=== PATIENT | female | born 1990 | race Caucasian/White ===

== ENCOUNTER 2021-10-28 00:38 | Inpatient (IN) | payer OTHER, SELFPAY ==
[2021-10-28] VITALS (30 sets, daily range): BP systolic 93–143; BP diastolic 50–96; PULSE 65–123; RESP 16–18; TEMP 36.3–37.2; O2SAT 100; BMI 41.2
--- OUTSIDE RECORDS SUMMARY | 2021-10-28 00:45 | XMS_ITS | Encounter Summary ---
:1990 Author Reason for Visit None recorded. Assessment and Plan 1. Maternal obesity complicating pregna ncy, childbirth and the puerperium, antepartum ? US, obstetric, biophysical profile + non-stress test Discussion Note: None recorded.Patient educational handouts: No information available. Plan of Care Reminders Provider Appointments None recorded. ? ? Lab None recorded. ? ? Referral None recorded. ? ? Procedures None recorded. ? ? Surgeries None recorded. ? ? Imaging US, Obstetric, Biophysical Profile + [place] Non-stress Test Medications Name Start Date ? ? ? Medications Administered None recorded. Vitals None recorded. Results Lab Results None recorded. Allergies Code Code System Name Reaction Severity Onset NKDA ? ? ? Problems Name Status Onset Date Source ? Active 05/19/2021 ? Procedures Date Name Performed by ? 09/23/2021 US, Obstetric, Follow-up [place] [address] [place] [address] (Work [address]) 09/23/2021 Non-stress Test [place] [address] [place] [address] ([address]) 09/30/2021 US, Obstetric, Biophysical Profile + [facility] Non-stress Test [address] [place], [place] [address]
--- OUTSIDE RECORDS SUMMARY | 2021-10-28 00:45 | XMS_ITS ---
:1990 Author Care Team Providers Name Role Phone Lisa Heller Primary Care Provider Unavailable Allergies Code Code System Name Reaction Severity Status Onset NKDA ? Medications Name Status Start Date Stop Date ? ? nitrofurantoin monohydrate/macrocrystals 100 mg capsule Complete d ? 06/17/2021 TAKE 1 CAPSULE BY MOUTH EVERY 12 HOURS WITH FOOD FOR 7 DAYS Active ? Not available Problems Name Status Onset Date Source ? Active 05/19/2021 ? Procedures Date Name Performed by ? 05/19/2021 US, Obstetric, Limited [place] [address] [place] [phone] ([address]) 06/17/2021 US, Obstetric, 2Nd or 3Rd Trimester [facility] [address] [place] [address] ([address]) 09/23/2021 US, Obstetric, Follow-up [place] [address] [place] [address] ([address]) 09/23/2021 Non-stress Test [place] [address] [place] [address] (Work [address]) 09/30/2021 US, Obstetric, Biophysical Profile + [facility] Non-stress Test [facility] [place] [address] ([address]) 09/30/2021 Non-stress Test [place]
--- OUTSIDE RECORDS SUMMARY | 2021-10-28 00:45 | XMS_ITS | Encounter Summary ---
[...] ? Imaging US, Obstetric, Biophysical Profile + [place] Non-stress Test Medications Name Start Date ? ? ? Medications Administered None recorded. Vitals None recorded. Results Lab Results None recorded. Allergies Code Code System Name Reaction Severity Onset NKDA ? ? ? Problems Name Status Onset Date Source ? Active 05/19/2021 ? Procedures Date Name Performed by ? 09/23/2021 US, Obstetric, Follow-up [place] [address] [place] [address] ([address]) 09/23/2021 Non-stress Test [place] [address] [place] [address] ([address]) 09/30/2021 US, Obstetric, [facility]ophysical [facility] [address] [place], [place] [address]
--- OUTSIDE RECORDS SUMMARY | 2021-10-28 00:45 | XMS_ITS | Encounter Summary ---
:1990 Author Reason for Visit OB visit Assessment and Plan Assessment Note Patient is ___weeks . Discussed plan. 1. Routine care Discussion Note: None recorded.Patient educational handouts: No information available. Plan of Care Reminders Provider Appointments None recorded. ? ? Lab None recorded. ? ? Referral None recorded. ? ? Procedures None recorded. ? ? Surgeries None recorded. ? ? Imaging None recorded. ? ? Medications Name Start Date ? ? ? Medications Administered None recorded. Vitals Height Weight BMI Blood Pressure 5 ft 3.75 in 240 lbs 41.5 kg/m2 133/87 mm[Hg] Results Lab Results None recorded. Allergies Code Code System Name Reaction Severity Onset NKDA ? ? ? Problems Name Status Onset Date Source ? Active 05/19/2021 ? Procedures Date Name Performed by ? 09/23/2021 US, Obstetric, Follow-up [place] [address] [place] [address] (Work [address]) 09/23/2021 Non-stress Test [place] [address] [place] [address] ([address]) 09/30/2021 US, Obstetric, Biophysical Profile + [facility]uy m[facility] Non-stress Test [address]
--- OUTSIDE RECORDS SUMMARY | 2021-10-28 00:45 | XMS_ITS | Encounter Summary ---
:1990 Author Reason for Visit None recorded. Assessment and Plan 1. Maternal obesity complicating pregna ncy, childbirth and the puerperium, antepartum ? US, obstetric, follow-up Discussion Note: None recorded.Patient educational handouts: No information available. Plan of Care Reminders Provider Appointments None recorded. ? ? Lab None recorded. ? ? Referral None recorded. ? ? Procedures None recorded. ? ? Surgeries None recorded. ? ? Imaging US, Obstetric, Follow-up 09/23/2021 [place] Medications Name Start Date ? ? ? Medications Administered None recorded. Vitals None recorded. Results Lab Results None recorded. Allergies Code Code System Name Reaction Severity Onset NKDA ? ? ? Problems Name Status Onset Date Source ? Active 05/19/2021 ? Procedures Date Name Performed by ? 09/23/2021 US, Obstetric, Follow-up [place] [address] [place] [address] ([address]) 09/23/2021 Non-stress Test [place] [address] [place] [address] ([address]) Vaccine List None recorded. Social History Tobacco Smoking Status Never Smoker What is the highest grade or level of school you have comple amberly or [id number] the highest degree you have received? What type of di
--- OUTSIDE RECORDS SUMMARY | 2021-10-28 00:45 | XMS_ITS | Encounter Summary ---
:1990 Author Reason for Visit None recorded. Assessment and Plan 1. Maternal obesity complicating pregna ncy, childbirth and the puerperium, antepartum ? non-stress test Discussion Note: None recorded.Patient educational handouts: No information available. Plan of Care Reminders Provider Appointments None recorded. ? ? Lab None recorded. ? ? Referral None recorded. ? ? Procedures None recorded. ? ? Surgeries None recorded. ? ? Imaging Non-stress Test 10/14/2021 [place] Medications Name Start Date ? ? ? Medications Administered None recorded. Vitals None recorded. Results Lab Results None recorded. Allergies Code Code System Name Reaction Severity Onset NKDA ? ? ? Problems Name Status Onset Date Source ? Active 05/19/2021 ? Procedures Date Name Performed by ? 09/23/2021 US, Obstetric, Follow-up [place] [address] [place] [address] (Work [address]) 09/23/2021 Non-stress Test [place] [address] [place] [address] ([address]) 09/30/2021 US, Obstetric, Biophysical Profile + [place] Non-stress Test [address] [place] [address] ([address])
--- OUTSIDE RECORDS SUMMARY | 2021-10-28 00:45 | XMS_ITS | Encounter Summary ---
:1990 Author Reason for Visit OB visit OB [id number] EDC 11/04/2021 LMP 01/28/2021 Assessment and Plan Assessment Note Patient is __38_weeks . Discuss ed plan. 1. Routine care Discussion Note: None [...] BMI Blood Pressure 5 ft 3.75 in 241 lbs 41.7 kg/m2 134/93 mm[Hg] Results Lab Results None recorded. Allergies Code Code System Name Reaction Severity Onset NKDA ? ? ? Problems Name Status Onset Date Source ? Active 05/19/2021 ? Procedures Date Name Performed by ? 09/23/2021 US, Obstetric, Follow-up [place] [address] [place] [address] ([address]) 09/23/2021 Non-stress Test [place] [address] [place] [address] ([address]) 09/30/2021 US, Obstetric, Biophysical Profile + [facility] Non-stress Test 2016 [address]
--- OUTSIDE RECORDS SUMMARY | 2021-10-28 00:45 | XMS_ITS | Encounter Summary ---
[...] None recorded. ? ? Imaging Non-stress Test 10/21/2021 [place] Medications Name Start Date ? ? ? Medications Administered None recorded. Vitals None recorded. Results Lab Results None recorded. Allergies Code Code System Name Reaction Severity Onset NKDA ? ? ? Problems Name Status Onset Date Source ? Active 05/19/2021 ? Procedures Date Name Performed by ? 09/23/2021 US, Obstetric, Follow-up [place] [address] [place] [address] ([address]) 09/23/2021 Non-stress Test [place] [address] [place] [address] ([address]) 09/30/2021 US, Obstetric, Biophysical Profile + [place] [facility] Non-stress Test [address] [place] [address] ([address])
--- OUTSIDE RECORDS SUMMARY | 2021-10-28 00:45 | XMS_ITS | Encounter Summary ---
[...] None recorded. ? ? Imaging Non-stress Test 10/07/2021 [place] Medications Name Start Date ? ? ? Medications Administered None recorded. Vitals None recorded. Results Lab Results None recorded. Allergies Code Code System Name Reaction Severity Onset NKDA ? ? ? Problems Name Status Onset Date Source ? Active 05/19/2021 ? Procedures Date Name Performed by ? 09/23/2021 US, Obstetric, Follow-up [place] [address] [place] [address] ([address]) 09/23/2021 Non-stress Test [place] [address] [place] [address] ([address]) 09/30/2021 US, Obstetric, Biophysical Profile + [place] m[facility] Non-stress Test [address] [place] [address] ([address])
--- OUTSIDE RECORDS SUMMARY | 2021-10-28 00:45 | XMS_ITS | Encounter Summary ---
:1990 Author Reason for Visit OB visit OB [id number] EDC 11/04/2021 LMP 01/28/2021 Assessment and Plan Assessment Note Patient is _28__weeks . Discuss ed plan. 1. Routine care [...] ft 3.75 in 241 lbs 41.7 kg/m2 128/83 mm[Hg] Results Lab Results None recorded. Allergies Code Code System Name Reaction Severity Onset NKDA ? ? ? Problems Name Status Onset Date Source ? Active 05/19/2021 ? Procedures None recorded. Vaccine List None recorded. Social History Tobacco Smoking Status Never Smoker What is the highest grade or level of school you have comple amberly or [id number] the highest degree you have received? What type of diet are you following? REGULAR Do you have difficulty walking or climbing stairs? N Are you able to walk? YESWOREST Has tobacco cessation counseling been provided? N Are you able to care for yourself? Y Have you used IV drugs? N Are you blind or do you have difficulty seeing? N
--- OUTSIDE RECORDS SUMMARY | 2021-10-28 00:45 | XMS_ITS | Encounter Summary ---
[...] None recorded. ? ? Imaging Non-stress Test 09/23/2021 [place] Medications Name Start Date ? ? ? Medications Administered None recorded. Vitals None recorded. Results Lab Results None recorded. Allergies Code Code System Name Reaction Severity Onset NKDA ? ? ? Problems Name Status Onset Date Source ? Active 05/19/2021 ? Procedures Date Name Performed by ? 09/23/2021 US, Obstetric, Follow-up [place] [address] [place] [address] ([address]) 09/23/2021 Non-stress Test [place] [address] [place] [address] ([address]) Vaccine List None recorded. Social History Tobacco Smoking Status Never Smoker What is the highest grade or level of school you have comple amberly or [id number] the highest degree you have received? What type of diet are you following?
--- OUTSIDE RECORDS SUMMARY | 2021-10-28 00:45 | XMS_ITS | Encounter Summary ---
:1990 Author Reason for Visit OB visit ob [id number] edc 11/04/2021 lmp 01/28/2021 Assessment and Plan Assessment Note Patient is _30__weeks . Discuss ed plan. 1. Routine care [...] ft 3.75 in 240 lbs 41.5 kg/m2 124/87 mm[Hg] Results Lab Results None recorded. Allergies Code Code System Name Reaction Severity Onset NKDA ? ? ? Problems Name Status Onset Date Source ? Active 05/19/2021 ? Procedures None recorded. Vaccine List None recorded. Social History Tobacco Smoking Status Never Smoker What is the highest grade or level of school you have comple amberly or [id number] the highest degree you have received? What type of diet are you following? REGULAR Do you have difficulty walking or climbing stairs? N Are you able to walk? YESWOREST Has tobacco cessation counseling been provided? N Are you able to care for yourself? Y Have you used IV drugs? N Are you blind or do you have difficulty seeing? N D
--- OUTSIDE RECORDS SUMMARY | 2021-10-28 00:45 | XMS_ITS | Encounter Summary ---
:1990 Author Reason for Visit OB visit Assessment and Plan 1. Maternal obesity complicating pregna ncy, childbirth and the puerperium, antepartum 2. Routine care Discussion Note: None recorded.Patient educational [...] BMI Blood Pressure 5 ft 3.75 in 237 lbs 41 kg/m2 127/86 mm[Hg] Results Lab Results None recorded. Allergies Code Code System Name Reaction Severity Onset NKDA ? ? ? Problems Name Status Onset Date Source ? Active 05/19/2021 ? Procedures Date Name Performed by ? 09/23/2021 US, Obstetric, Follow-up [place] [address] [place] [address] ([address]) 09/23/2021 Non-stress Test [place] [address] [place] [address] ([address]) 09/30/2021 US, Obstetric, Biophysical Profile + [facility] [address]
--- OUTSIDE RECORDS SUMMARY | 2021-10-28 00:45 | XMS_ITS | Encounter Summary ---
:1990 Author Reason for Visit None recorded. Assessment and Plan 1. Maternal obesity complicating pregna ncy, childbirth and the puerperium, antepartum ? US, obstetric, follow-up ? US, obstetric, biophysical profile + non-stress test Discussion Note: None recorded.Patient educational handouts: No information available. Plan of Care Reminders Provider Appointments None recorded. ? ? Lab None recorded. ? ? Referral None recorded. ? ? Procedures None recorded. ? ? Surgeries None recorded. ? ? Imaging US, Obstetric, Follow-up 10/21/2021 [place] ? US, Obstetric, Biophysical Profile + [place] Non-stress Test Medications Name Start Date ? ? ? Medications Administered None recorded. Vitals None recorded. Results Lab Results None recorded. Allergies Code Code System Name Reaction Severity Onset NKDA ? ? ? Problems Name Status Onset Date Source ? Active 05/19/2021 ? Procedures Date Name Performed by ? 09/23/2021 US, Obstetric, Follow-up [place] [address] [place] [address] ([address]) 09/23/2021 Non-stress Test [place] [address] [place] [address] ([address]) 09/30/2021 US, Obstetric, Biophysical Profile + Thuy márquez
--- OUTSIDE RECORDS SUMMARY | 2021-10-28 00:45 | XMS_ITS | Encounter Summary ---
:1990 Author Reason for Visit OB visit OB [id number] EDC 11/04/2021 LMP 01/28/2021 Assessment and Plan Assessment Note Patient is _35__weeks . Discuss ed plan. 1. Routine care [...] BMI Blood Pressure 5 ft 3.75 in 239 lbs 41.3 kg/m2 136/83 mm[Hg] Results Lab Results None recorded. Allergies Code Code System Name Reaction Severity Onset NKDA ? ? ? Problems Name Status Onset Date Source ? Active 05/19/2021 ? Procedures Date Name Performed by ? 09/23/2021 US, Obstetric, Follow-up [place] [address] [place] [address] ([address]) 09/23/2021 Non-stress Test [place] [address] [place] [address] ([address]) 09/30/2021 US, Obstetric, Biophysical Profile + [facility]uy m[facility] Non-stress Test 2016 [address]
--- OUTSIDE RECORDS SUMMARY | 2021-10-28 00:45 | XMS_ITS | Encounter Summary ---
[...] ? Imaging US, Obstetric, Biophysical Profile + [place] Non-stress Test Medications Name Start Date ? ? ? Medications Administered None recorded. Vitals None recorded. Results Lab Results None recorded. Allergies Code Code System Name Reaction Severity Onset NKDA ? ? ? Problems Name Status Onset Date Source ? Active 05/19/2021 ? Procedures Date Name Performed by ? 09/23/2021 US, Obstetric, Follow-up [place] [address] [place] [address] ([address]) 09/23/2021 Non-stress Test [place] [address] [place] [address] ([address]) 09/30/2021 US, Obstetric, Biophysical Profile + [facility] [address] [place], [place] [address]
--- OUTSIDE RECORDS SUMMARY | 2021-10-28 00:45 | XMS_ITS | Encounter Summary ---
:1990 Author Reason for Visit OB visit OB [id number] EDC 11/04/2021 LMP 01/28/2021 Assessment and Plan Assessment Note Patient is _34__weeks . Discuss ed plan. 1. Routine care [...] ft 3.75 in 239 lbs 41.3 kg/m2 138/85 mm[Hg] Results Lab Results None recorded. Allergies Code Code System Name Reaction Severity Onset NKDA ? ? ? Problems Name Status Onset Date Source ? Active 05/19/2021 ? Procedures Date Name Performed by ? 09/23/2021 US, Obstetric, Follow-up [place] [address] [place] [address] ([address]) 09/23/2021 Non-stress Test [place] [address] [place] [address] ([address]) Vaccine List None recorded. Social History Tobacco Smoking Status Never Smoker
--- OUTSIDE RECORDS SUMMARY | 2021-10-28 00:45 | XMS_ITS | Encounter Summary ---
[...] None recorded. ? ? Imaging Non-stress Test 09/30/2021 [place] Medications Name Start Date ? ? ? Medications Administered None recorded. Vitals None recorded. Results Lab Results None recorded. Allergies Code Code System Name Reaction Severity Onset NKDA ? ? ? Problems Name Status Onset Date Source ? Active 05/19/2021 ? Procedures Date Name Performed by ? 09/23/2021 US, Obstetric, Follow-up [place] [address] [place] [address] ([address]) 09/23/2021 Non-stress Test [place] [address] [place] [address] ([address]) 09/30/2021 US, Obstetric, Biophysical Profile + Thuy m[facility] Non-stress Test [address] [place] [address] ([address])
[2021-10-28 01:38] LABS: Basophils Percent Auto 0.2 % (0.2-1.2); Eosinophils Percent Auto 0.2 % (0-4.4); Hematocrit 32.9 % (37.0-47.0); Hemoglobin 10.7 g/dL (12.0-15.0); Immature Granulocyte Absolute 0.05 K/mm3 (0.00-0.031); Immature Granulocyte Percent A 0.4 % (0-0.5); Lymphocytes Absolute Auto 2.63 K/mm3 (0.9-3.2); Lymphocytes Percent Auto 21.2 % (18.3-44.2); Mean Corpuscular HGB Conc 32.5 g/dl (32-36); Mean Corpuscular Hemoglobin 26.7 pg (26-34); Mean Platelet Volume 12.6 fl (7.4-10.4); Monocytes Absolute Auto 0.6 K/mm3 (0.1-0.6); Monocytes Percent Auto 4.8 % (2.6-8.5); Neutrophils Absolute Auto 9.1 K/mm3 (1.3-6.7); Neutrophils Percent Auto 73.2 % (45.5-73.1); Platelet Count Result 236 k/mm3 (150-375); Red Blood Count 4.01 M/mm3 (4.2-5.4); Red Cell Distribution Width 13.8 % (11.5-14.5); White Blood Count 12.4 K/mm3 (4.5-10.0)
[2021-10-28 01:51] LABS: Alanine Aminotransferase 10 U/L (6-35); Albumin Level 3.7 g/dL (3.5-5.1); Alkaline Phosphatase 252 U/L (38-126); Anion Gap 8 mmol/L (8-16); Aspartate Amino Transferase 26 U/L (14-36); Bilirubin,Total 0.5 mg/dL (0.2-1.3); Blood Urea Nitrogen 9 mg/dL (7-17); Calcium 8.8 mg/dL (8.4-10.2); Carbon Dioxide 17 mmol/L (22-30); Chloride 110 mmol/L (98-107); Estimated CRCL calculation 139 ml/min; Estimated Glomerular Filt Rate > 60; Glucose 87 mg/dL (65-110); Potassium 4.1 mmol/L (3.4-5.0); Sodium 135 mmol/L (137-145)
[2021-10-28] MEDS: DINOPROSTONE 10 MG VAG INSERT VAGINAL (01:52)
--- NOTE | 2021-10-28 07:44 | P.PNOB_ITS ---
OB - PN: Subj Subjective Date/time seen: 10/28/21 07:44 IOL complicated by obesity. OB - PN: Obj Data Labs CBC & Chem 7: 10/28/21 01:26 10/28/21 01:26 Labs: Laboratory Results - last 24 hr 10/28/21 10/28/21 10/28/21 01:26 01:26 01:26 WBC 12.4 H RBC 4.01 L Hgb 10.7 L Hct 32.9 L MCV 82.0 MCH 26.7 MCHC 32.5 RDW 13.8 Plt Count 236 MPV 12.6 H Immature Gran % (Auto) 0.4 Neut % (Auto) 73.2 H Lymph % (Auto) 21.2 [place] % (Auto) 4.8 Eos % (Auto) 0.2 Baso % (Auto) 0.2 Lymph # (Auto) 2.63 [place] # (Auto) 0.6 Eos # (Auto) 0.0 Baso # (Auto) 0.0 Abs Immat Gran (auto) 0.05 H Absolute Neuts (auto) 9.1 H Absolute Nucleated RBC 0.0 Nucleated RBC % 0.0 Sodium 135 L Potassium 4.1 Chloride 110 H Carbon Dioxide 17 L Anion Gap 8 BUN 9 Creatinine 0.60 L Estim Creat Clear Calc 139 Estimated GFR > 60 Glucose 87 Uric Acid 6.0 Calcium 8.8 Total Bilirubin 0.5 AST 26 ALT 10 Alkaline Phosphatase 252 H Total Protein 7.0 Albumin 3.7 Blood Type O Positive Antibody Screen Negative OB - PN A/P Assessment and Plan (1) Obesity: Code(s): E66.9 - Obesity, unspecified Status: Acute Plan Induction of labor, anticipate vaginal delivery Time Spent With Patient Time: Total time spent is greater than 50% in coordination of care (as documented) at patient's floor/unit and/or counseling patient: Review of Systems Review of Systems: All systems reviewed & are unremarkable except as noted in HPI and below Exam Const: General: cooperative, healthy appearing and comfortable
[2021-10-28 08:35] LABS: Rapid Plasma Reagin Non-Reactive (NonReactive)
--- NOTE | 2021-10-28 11:47 | PM.OBPNLAB ---
Pain Control Date/time seen: 10/28/21 11:47 SVE /-2 AROM moderate amount of clear odorless fluid
[2021-10-28] MEDS: LACTATED RINGERS 1,000 ML 125 ML IV CONT (12:30)
[2021-10-28] MEDS: OXYTOCIN 30 UNITS/NS 500 ML 30 UNITS/500 ML BAG IV CONT (12:30)
[2021-10-28] MEDS: fentaNYL CITRATE INJ (*CRX) 100 MCG/2 ML VIAL 50 MCG IV PUSH (13:28)
--- NOTE | 2021-10-28 13:51 | PM.OBPRVD ---
OB - Delivery Note Procedure Delivery date: 10/28/21 Procedure: Vaginal delivery Events: Other (obesity) Induction method: AROM and Per Cervidil Protocol Delivery monitor: External FHT and External Uterine Route of delivery: Episiotomy description: None Laceration Description: None Specimen: No Quantitative Blood Loss (ml): 25 Anesthesia type: None Disposition: Floor [place] Baby Date of : 10/28/21 Time of : 13:41 Weeks of gestation at delivery: 39 gender: Female presentation: vertex position: Right Occiput Anterior Placenta delivery description: Spontaneous Cord Vessel Description: 3 Vessels, Nuchal Cord (x1), Reduced, Delayed Cord Clamping and Other (true knot) score five minutes: 9 score ten minutes: 9 Narrative: mom and baby skin to skin in stable condition
[2021-10-28] MEDS: OXYTOCIN 30 UNITS/NS 500 ML 30 UNITS/500 ML BAG 125 UNITS IV CONT (14:21)
--- NOTE | 2021-10-28 16:04 | OBPPTRN ---
Patient transferred to post room #292 via wheelchair. Support person present. Oriented to unit, room, information board, rooming in, admission packet and security measures. Patient verbalizes understanding.
[2021-10-28] MEDS: DOCUSATE SODIUM 100 MG CAPSULE PO (16:38)
[2021-10-28] MEDS: IBUPROFEN 600 MG TABLET PO ×2 (16:38→21:59)
[2021-10-28] MEDS: ACETAMINOPHEN 325 MG TABLET 650 MG PO (21:58)
[2021-10-29] MEDS: TETANUS,DIPHTHERIA,AC PERTUSSIS ADULT (0.5 ML) BOOSTRIX IM (03:22)
[2021-10-29 03:35] VITALS: BP 125/88; PULSE 80; RESP 18; TEMP 36.6
[2021-10-29] MEDS: IBUPROFEN 600 MG TABLET PO ×2 (03:57→11:55)
[2021-10-29] MEDS: ACETAMINOPHEN 325 MG TABLET 650 MG PO ×2 (03:57→11:56)
[2021-10-29 05:20] LABS: Hematocrit 33.5 % (37.0-47.0); Hemoglobin 10.8 g/dL (12.0-15.0)
--- NOTE | 2021-10-29 06:01 | PM.OBPNVD ---
OB - PN: Subj Subjective Date/time seen: 10/29/21 06:01 s/p vaginal delivery day 1, no complications OB - PN: Obj Data Labs CBC & Chem 7: 10/29/21 03:10 10/28/21 01:26 Labs: Laboratory Results - last 24 hr 10/28/21 10/29/21 01:26 03:10 Hgb 10.8 L Hct 33.5 L RPR Non-reactive OB - PN A/P Plan day: 1 Plan: routine care and discharge home Time Spent With Patient Time: Total time spent is greater than 50% in coordination of care (as documented) at patient's floor/unit and/or counseling patient: Review of Systems Review of Systems: All systems reviewed & are unremarkable except as noted in HPI and below Exam Const: General: cooperative, healthy appearing and comfortable
--- NOTE | 2021-10-29 06:03 | P.DS_ITS ---
DS: Admitting Diagnosis Discharge Date 10/29/2021 Admitting Diagnosis IOL OB - DS: Summary OB Procedures : None OB Procedures Intrapartum: Spontaneous Vag Delivery OB Procedures: : None Time Spent with Patient Time attestation: Total time spent providing and/or coordinating discharge services: DS: Data Data Completed and Pending Labs on day of discharge: Labs from last 24 hours 10/29/21 10/28/21 03:10 01:26 Hgb 10.8 L Hct 33.5 L RPR Non-reactive Discharge Plan Discharge Attending physician on discharge: Caity Munoz Consulting providers: Lisa Heller Discharging Clinician: Lisa Heller Patient Disposition: Home, Self-Care Activity: pelvic rest Diet: regular Patient Instructions: Antibiotic Form Stand Alone Forms: General Discharge Information Follow-up/Referrals: Lisa Heller, JAMESM [Certified Nurse [employer] History Collections Curator] - 4 Weeks Discharge Medications: New ibuprofen 600 mg Tablet 600 mg PO Q6H PRN (Reason: Cramping) Qty: 30 0RF Discontinued cyclobenzaprine 10 mg tablet 10 mg PO TID PRN (Reason: muscle spasm) Qty: 7 0RF ibuprofen [IBU] 600 mg tablet 600 mg PO Q6H PRN (Reason: fever or pain) Qty: 7 0RF Date of admission: 10/28/21 00:38 Primary Care Provider: PHYSICIAN,CRABBING MACHINE OPERATOR Admitting Provider: Caity Munoz Attending physician on admission: Caity Munoz Condition: Stable
[2021-10-29 07:55] VITALS: BP 104/73; PULSE 77; RESP 16; TEMP 36.9; O2SAT 100
--- NOTE | 2021-10-29 08:12 | WPDANLDNPN2 ---
Anes-Prog Note L&D-Neuraxial Date/Time: 10/29/21 08:12 Patient feedback: Patient satisfied with post-operative pain management.
[2021-10-29] MEDS: DOCUSATE SODIUM 100 MG CAPSULE PO (08:48)
[2021-10-29 11:45] VITALS: BP 127/82; PULSE 77; RESP 16; TEMP 37.1; O2SAT 100
[2021-11-01 07:46] VITALS: BP 135/97; PULSE 68; RESP 16; TEMP 37.2; O2SAT 100
== END 2021-10-29 15:15 | disposition home or self-care (01) | DRG 560 ==
LOC: ANHLDR 00:42 → ANHOB2 17:32
PROVIDERS: Advanced Practice Midwife; Admitting Provider Obstetrics & Gynecology; Visit Provider Obstetrics & Gynecology
DX: O13.4 Gestational [pregnancy-induced] hypertension without significant proteinuria, complicating childbirth (principal); O99.214 Obesity complicating childbirth; O69.2XX0 Labor and delivery complicated by other cord entanglement, with compression, not applicable or unspecified; Z3A.39 39 weeks gestation of pregnancy; Z37.0 Single live birth
CPT/HCPCS: 36415; 80053; 84550; 85014; 85018; 85025; 86592; 86850; 86900; 86901; 90715; A9270; J2590; J3010; J7120

== ENCOUNTER 2022-05-19 09:29 | Emergency (ER) | payer OTHER, SELFPAY ==
[2022-05-19 09:40] VITALS: BP 119/85; PULSE 93; RESP 12; TEMP 37.1; O2SAT 100
--- NOTE | 2022-05-19 09:48 | ED.URI ---
HPI - URI/Sore Throat General Chief Complaint: Ear Stated Complaint: Ears Irritation,Headache Time Seen by Provider: 05/19/22 10:12 Source: patient, RN notes reviewed and old records reviewed Mode of arrival: ambulatory Limitations: no limitations History of Present Illness HPI Narrative: 31 year old Sunday female who presents to express care with complaints of sore throat and ear pain since Sunday with minimal temperature noted, denies any cough or sinus drainage, does admit to headache pain. Patient reports that ears are sore donna she swallows mainly and throat is red and painful with swallowing. Patient states that she has been taking Ibuprofen for her symptoms. Patient reports that her daughter has had ear infection no other known ill contact. MD elicited complaint: sore throat and other (ear pain) Onset (ago): day(s) (05/16/2022) Pain scale (0-10): 8 Able to tolerate fluids by mouth: Yes Treatments prior to arrival: ibuprofen Related Data Allergies Allergy/AdvReac Type Severity Reaction Status Date / Time No Known Allergies Allergy Verified 05/19/22 10:01 Review of Systems Review of Systems: CONSTITUTIONAL: Denies malaise, chills, sweats, minimal temperature elevation. EYES: Denies visual changes, redness, or discharge. ENT: Reports some rhinorrhea, congestion, no sinus pain,reports bilateral otalgia and sore throat. CARDIOVASCULAR: Denies chest pain, palpitations, or edema. RESPIRATORY: Reports no cough.? Denies dyspnea. GASTROINTESTINAL: Denies abdominal pain, nausea, vomiting, diarrhea SKIN: Denies rash or itching. MUSCULOSKELETAL: Denies myalgia. NEUROLOGIC: Positive for headache. All systems reviewed & are unremarkable except as noted in HPI and below PMFSH Past Medical History Medical History (Updated 05/19/22 @ 11:45 by Bettina Walker NP) Anxiety Gestational hypertension Family History Family History Mother Hypertension Grandparent Diabetes mellitus Social History Social History Smoking status: Never smoker Substance use: never Gender identity (if verbalized by the patient): Female Spiritual care concerns: No Comments At time of signature, agree with nursing past medical, surgical, social and family history. There is no relevant family history pertinent to the presenting complaint Exam Narrative: GENERAL: Well-appearing, well-nourished, and in no acute distress. HEAD: Normocephalic EYES: PERRLA, conjunctivae clear ENT: Nares clear, turbinates edematous and erythematous, clear discharge. Mucous membranes moist. TM pearly pena with dull light reflex bilaterally; no tragal tenderness. Oropharynx erythematous without lesions. Tonsils enlarged and with white exudates, no drooling, no hoarseness, no trismus, uvula midline red and swollen. NECK: Supple. lymphadenopathy CHEST: Clear to auscultation, breath sounds equal. No wheezing, rhonchi, rales, or stridor. No respiratory distress, speaks in full sentences.SAO2 100% on room air HEART: Regular rate and rhythm. No murmur heard. SKIN: Warm, dry, no rash. NEURO: Alert and oriented x3. PSYCH: Normal mood and affect Course Course Emergency Course: Patient is aware of diagnosis, understands and agrees to treatment plan.? Anticipatory guidance given.? Patient agrees to follow-up as directed and is aware of reasons to seek care at the emergency department. Portions of this record may have been created with voice recognition software Level of Care: Express Care Visit Vital Signs Vital signs: Vital Signs Temperature 37.1 C 05/19/22 09:40 Pulse Rate 93 05/19/22 09:40 Respiratory Rate 12 05/19/22 09:40 Blood Pressure 119/85 05/19/22 09:40 Pulse Oximetry 100 05/19/22 09:40 Temperature 37.1 C 05/19/22 09:40 Pulse Rate 93 05/19/22 09:40 Respiratory Rate 12 05/19/22 09:40 Blo
== END 2022-05-19 10:30 | disposition home or self-care (01) ==
PROVIDERS: Emergency Provider Registered Nurse
DX: J02.0 Streptococcal pharyngitis (principal); H92.03 Otalgia, bilateral
CPT/HCPCS: 87880; 99213; G0463

== ENCOUNTER 2023-03-16 13:51 | Emergency (ER) | payer SELFPAY ==
--- NOTE | 2023-03-16 14:05 | ED.URI ---
HPI - URI/Sore Throat General Chief Complaint: Upper Respiratory Infection Stated Complaint: sore throat Time Seen by Provider: 03/16/23 14:10 Source: patient Mode of arrival: ambulatory Limitations: no limitations History of Present Illness HPI Narrative: Deanne is a 32-year-old female patient presenting to clinic today with complaints of a sore throat x4 days. She reports that she is having painful swallowing, felt feverish, and has had exposure to strep. No known exposure to COVID or flu. MD elicited complaint: sore throat Related Data Allergies Allergy/AdvReac Type Severity Reaction Status Date / Time No Known Allergies Allergy Verified 03/16/23 13:54 Review of Systems Review of Systems: Pertinent positives per HPI. Patient denies any rash, headache, visual changes, dizziness, cough, shortness of breath, chest pain, palpitations, nausea, vomiting, diarrhea, constipation, abdominal pain, or any urinary issues. [facility] Past Medical History Medical History (Updated 03/16/23 @ 14:13 by Gilbert Ponce APRN) Anxiety Gestational hypertension Family History Family History Mother Hypertension Grandparent Diabetes mellitus Social History Social History Smoking status: Never smoker Substance use: never Gender identity (if verbalized by the patient): Female Spiritual care concerns: No Comments At the time of my signature, I reviewed and agree with the nursing past medical, surgical, social, and family history. There is no relevant family history pertinent to the patient complaint. Exam Narrative: General: Well-developed, well nourished, in no apparent distress Head: Normocephalic, atraumatic Eyes: Pupils equally round and reactive to light bilaterally, EOM intact, sclera and conjunctive clear, no discharge, lids normal Ears: TMs intact and clear, ear canals clear, no drainage, grossly hearing normal. Nose: Nares patent, no discharge, no inflammation, no sinus tenderness. Mouth: Oral pharynx red with bilateral tonsillar enlargement and exudate noted to the right tonsil without lesions or masses, good dentition, MMM. Neck: Supple, trachea midline, enlargement of anterior cervical nodes, no thyroid masses or goiter palpable. Cardio: Regular rate and rhythm, s1 and s2 normal, no murmur appreciated. Resp: Clear to auscultation bilaterally, no rhonchi, rales, wheezing or rubs Course Course Emergency Course: Portions of this record may have been created with voice recognition software. Level of Care: Express Care Visit Vital Signs Vital signs: Vital signs reviewed MDM - URI/Sore Throat MDM Narrative Medical decision making narrative: At the time of visit patient is resting comfortably on the exam table. Strep screen was obtained and positive in the clinic today. COVID testing was negative. Prescription for amoxicillin was sent to the pharmacy and supportive measures were discussed with the patient. Patient is nontoxic appearing. Return precautions were reviewed. Differential Diagnosis Differential diagnosis: Likely upper respiratory infection, otitis media, sinusitis, viral infection, bronchitis, influenza, pharyngitis and other (COVID) Discharge Plan Discharge Clinical Impression: Strep pharyngitis Patient Disposition: Home, Self-Care Condition: Stable Instructions: Antibiotic Form, Strep Throat (ED) Additional Instructions: Strep test was positive in the clinic today. COVID testing was negative. Take prescription medications only as prescribed-amoxicillin Change her toothbrush in 24 hours after initiation of the antibiotics Increase fluids and stay well hydrated Tylenol/motrin for pain/fever Flonase and OTC antihistamines as directed Vicks vapor rub to open sinuses Sinus rinses for congestion Cepacol spray, cough drops, throat loze
[2023-03-16 14:07] VITALS: BP 140/96; PULSE 103; RESP 16; TEMP 36.3; O2SAT 100
== END 2023-03-16 14:20 | disposition home or self-care (01) ==
PROVIDERS: Emergency Provider Nurse Practitioner Family
DX: J02.0 Streptococcal pharyngitis (principal); Z20.822 Contact with and (suspected) exposure to COVID-19
CPT/HCPCS: 87426; 87880; 99213; C9803; G0463

== ENCOUNTER 2024-08-25 11:56 | Emergency (ER) | payer OTHER, SELFPAY ==
--- NOTE | ~2024-08-25 | XR_ITS ---
EXAMINATION: XR chest 2V DATE: 08/25/2024 12:25 INDICATION: One month of cough TECHNIQUE: PA and lateral views of the chest were obtained. COMPARISON: None FINDINGS: The lungs are clear with no focal airspace opacities, pulmonary edema, pleural effusion or pneumothor ax. Arch size is normal with small bilateral paracardial fat pads. Visualized bones and soft tissues are unremarkable. IMPRESSION: 1. No acute cardiopulmonary disease. Reviewed, dictated and finalized at location A.
[2024-08-25 12:05] VITALS: BP 139/100; PULSE 102; RESP 19; TEMP 36.3; O2SAT 100
--- NOTE | 2024-08-25 12:28 | ED.URI ---
HPI - URI/Sore Throat General Chief Complaint: Upper Respiratory Infection Stated Complaint: Cough Source: patient Mode of arrival: ambulatory Limitations: no limitations History of Present Illness HPI Narrative: Patient is a 34-year-old female who presents to the clinic with a cough it has been persistent for a month. She has tried Mucinex, Sudafed, and cold and flu. She is not having any relief. Denies any fever, chills, body aches, shortness of breath, or difficulty swallowing. Related Data Allergies Allergy/AdvReac Type Severity Reaction Status Date / Time No Known Allergies Allergy Verified 08/25/24 12:32 Review of Systems Review of Systems: CONSTITUTIONAL: Denies body aches, fever, chills, or sweats. EYES: Denies visual changes, redness, or discharge. ENT: Denies rhinorrhea, congestion, sore throat, or otalgia. CARDIOVASCULAR: Denies chest pain, palpitations, or edema. RESPIRATORY: Reports cough. GASTROINTESTINAL: Denies abdominal pain, nausea, vomiting, or diarrhea. GENITOURINARY: Denies dysuria or hematuria. SKIN: Denies rash, itching, or wounds. MUSCULOSKELETAL: Denies back pain, joint pain, or myalgia. NEUROLOGIC: Denies headache, numbness, tingling, or weakness. PSYCH: Denies depression or anxiety. All systems reviewed & are unremarkable except as noted in HPI and below PMFSH Past Medical History Medical History Anxiety Gestational hypertension Family History Family History Mother Hypertension Grandparent Diabetes mellitus Social History Social History Smoking status: Never smoker Substance use: never Gender identity (if verbalized by the patient): Female Spiritual care concerns: No Comments At time of signature, I have reviewed and agree with nursing past medical, surgical, social and family history unless otherwise noted. Please see nursing chart for further information. There is no relevant family history pertinent to the presenting complaint. Exam Narrative: GENERAL: Well-appearing, well-nourished, and in no acute distress. EYES: EOMI. No redness or drainage. Conjunctivae normal. ENT: Mucous membranes pink and moist. Nares clear. No rhinorrhea. TMs normal bilaterally. Throat Erythematous without tonsillar exudate, uvula midline. No nasal congestion noted. NECK: Normal AROM. Supple. No lymphadenopathy. CHEST: No respiratory distress. Clear to auscultation. HEART: Regular rate and rhythm. No murmur appreciated. Normal peripheral pulses. ABDOMEN: Soft, nontender, nondistended, normal active bowel sounds. SKIN: Warm, dry, no rash. Capillary refill normal. Normal skin turgor. NEURO: No focal deficits. Alert and oriented x3. Gait steady. PSYCH: Normal affect. No signs of depression or anxiety. Course Course Level of Care: Express Care Visit Vital Signs Vital signs: Vital Signs Temperature 97.3 F L 08/25/24 12:05 Pulse Rate 102 H 08/25/24 12:05 Respiratory Rate 19 08/25/24 12:05 Blood Pressure 139/100 H 08/25/24 12:05 Pulse Oximetry 100 08/25/24 12:05 Oxygen Delivery Room Air 08/25/24 12:05 Temperature 97.3 F L 08/25/24 12:05 Pulse Rate 102 H 08/25/24 12:05 Respiratory Rate 19 08/25/24 12:05 Blood Pressure 139/100 H 08/25/24 12:05 Pulse Oximetry 100 08/25/24 12:05 Oxygen Delivery Room Air 08/25/24 12:16 Reviewed. MDM - URI/Sore Throat MDM Narrative Medical decision making narrative: Discussed physical exam findings. Antibiotic, steroid, inhaler given for bronchitis. Advised supportive measures and signs/symptoms to go to the ER. Pt is appropriate for outpt treatment and follow up. Differential Diagnosis Differential diagnosis: Likely upper respiratory infection, viral infection and bronchitis Imaging Data Radiologist's impression: ITS Impressions Chest X-Ray 08/25/24 12:26 IMPRESSION: 1. No acute cardiopulmonary disease. Critical Care Time Critical Care Time Critical Care Time: No Discharge Plan Discharge Clinical Impression: Bronchitis Patient Disposition: Home Condition: Stable Instructions: Acute Bronchitis (ED) Additional Instructions: Take antibiotic as prescribed. Take steroid as prescribed. Take Benzonatate as prescribed for cough. Recommend Flonase spray and Zyrtec (or Claritin/Linda) Tylenol every 8 hours as needed for pain Symptomatic treatment includes: rest, fluids, and increase humidity of the air at home. Follow up with your primary care provider in 1 week. Go to the ER for worsening symptoms or concerns. Patient Language: Serbian Prescriptions: New prednisone 20 mg tablet 40 mg PO DAILY 5 Days Qty: 10 0RF albuterol sulfate [Ventolin HFA] 90 mcg/actuation HFA aerosol inhaler 2 puff inhalation QID PRN (Reason: shortness of breath or wheezing) Qty: 6.7 0RF azithromycin [Zithromax Z-Omar] 250 mg tablet See Rx Instructions .ROUTE .COMPLEX Qty: 6 0RF Rx Instructions: For 250 mg dose pack: take 500 mg today (day 1), then 250 mg for 4 days (days 2-5) benzonatate 200 mg capsule 200 mg PO BID PRN (Reason: cough) Qty: 20 0RF Follow-up/Referrals: PHYSICIAN,[facility] [employer] [Primary Care Provider] - Stand Alone Forms: Work/School Release IP Time of Disposition: 12:33
== END 2024-08-25 12:42 | disposition home or self-care (01) ==
DX: J40 Bronchitis, not specified as acute or chronic (principal)
CPT/HCPCS: 71046; 99213; G0463

== ENCOUNTER 2025-01-16 14:57 | Outpatient (CLI) | payer OTHER, MEDICAID, SELFPAY ==
[2025-01-16 15:38] VITALS: BP 125/80; PULSE 109
[2025-01-16 15:46] VITALS: BP 129/81; PULSE 104
[2025-01-16 15:48] LABS: Hematocrit 32.9 % (37.0-47.0); Hemoglobin 10.9 g/dL (12.0-15.0); Immature Granulocyte Percent A 0.7 % (0-0.5); Lymphocytes Absolute Auto 1.67 K/mm3 (0.9-3.2); Mean Corpuscular HGB Conc 33.1 g/dl (32-36); Mean Corpuscular Hemoglobin 27.3 pg (26-34); Mean Corpuscular Volume 82.3 fl (80-100); Nucleated Red Blood Cells Absolute Auto 0.000 K/mm3 (0.0-0.012); Nucleated Red Blood Cells Perc 0.0 % (0.0-0.2); Platelet Count Result 282 k/mm3 (150-375); Red Blood Count 4.00 M/mm3 (4.2-5.4); White Blood Count 14.9 K/mm3 (4.5-10.0)
[2025-01-16 16:01] VITALS: BP 126/72; PULSE 116
[2025-01-16 16:03] LABS: Alanine Aminotransferase 11 U/L (6-35); Albumin Level 3.9 g/dL (3.5-5.1); Alkaline Phosphatase 83 U/L (38-126); Anion Gap 11 mmol/L (4-12); Aspartate Amino Transferase 16 U/L (14-36); Bilirubin,Total 0.3 mg/dL (0.2-1.3); Blood Urea Nitrogen 5 mg/dL (7-17); Calcium 9.2 mg/dL (8.4-10.2); Carbon Dioxide 14 mmol/L (22-30); Chloride 106 mmol/L (98-107); Estimated Glomerular Filt Rate > 60; Glucose 101 mg/dL (65-110); Potassium 4.0 mmol/L (3.4-5.0); Sodium 131 mmol/L (137-145); Total Protein 7.7 g/dL (6.3-8.2); Total Protein Urine Random 10 mg/dL; Ur Ttl Prot Creatinine Ratio 0.10 mg/mg (0-0.20); Uric Acid 5.9 mg/dL (2.5-7.5)
[2025-01-16 16:13] LABS: Add Urine Microscopic? YES; Appearance Urine Cloudy (Clear); Glucose Urine UA Negative (Negative); Leukocyte Esterase Ur 3+ LEU/UL (Negative); Need Manual Microscopic Reviewed; Nitrate Urine Negative (Negative); Specific Grav Ur 1.008 (1.001-1.035)
[2025-01-16 16:18] VITALS: BP 126/72; PULSE 116
== END 2025-01-16 16:34 | disposition home or self-care (01) ==
LOC: ANHOBOP 15:10 → ANHLDR 15:11
PROVIDERS: Visit Provider Advanced Practice Midwife
DX: O13.9 Gestational [pregnancy-induced] hypertension without significant proteinuria, unspecified trimester (principal); Z3A.00 Weeks of gestation of pregnancy not specified
CPT/HCPCS: 36415; 59025; 80053; 81001; 82570; 84156; 84550; 85025; 87086; 99199